=== PATIENT | female | born 1975 | race Caucasian/White ===

== ENCOUNTER 2021-11-08 14:26 | Emergency (ER) | payer OTHER, SELFPAY ==
[2021-11-08 14:30] VITALS: BP 128/83; PULSE 75; RESP 18; TEMP 36.7; O2SAT 98
--- NOTE | 2021-11-08 14:55 | ED.URI ---
HPI - URI/Sore Throat General Chief Complaint: Upper Respiratory Infection Stated Complaint: Sinus pain, cough, sore throat. Time Seen by Provider: 11/08/21 14:28 Source: patient Mode of arrival: ambulatory Limitations: no limitations History of Present Illness HPI Narrative: 46-year-old female presents to [facility] with complaints of nasal congestion, dry cough and fatigue on and off for the past 2 weeks. Patient reports that symptoms became worse 3 days ago. Patient reports that COVID is going around her work. Patient is COVID vaccinated. Patient denies recent travel. Patient denies shortness of breath, wheezing or runny nose. MD elicited complaint: cough Onset (ago): week(s) (2) Able to tolerate fluids by mouth: No Associated symptoms: nasal congestion Treatments prior to arrival: none Related Data Home Medications Medication Instructions Recorded Confirmed amitriptyline 25 mg PO DAILY 11/08/21 11/08/21 escitalopram oxalate 10 mg PO DAILY 11/08/21 11/08/21 spironolactone 100 mg PO BID 11/08/21 11/08/21 Allergies Allergy/AdvReac Type Severity Reaction Status Date / Time No Known Allergies Allergy Verified 11/08/21 14:46 Review of Systems Constitutional: Constitutional: Denies chills, Reports fatigue, Denies fever(s) and Denies weakness ENT: Denies vertigo, Denies dizziness, Reports nasal congestion and Denies sore throat Cardiovascular: Cardiovascular: Denies chest pain, Denies rapid heart rate, Denies radiating jaw, neck or arm pain and Denies slow heart rate Respiratory: Respiratory: Reports cough, Denies dyspnea and Denies wheezing Gastrointestinal: Gastrointestinal: Denies nausea Musculoskeletal: Musculoskeletal: Denies arthralgias and Denies joint swelling Integumentary/Breasts: Skin/Breast: Denies rash Allergic/Immunologic: Allergic/Immunologic: Denies wheezing PMFSH Comments At time of signature, I agree with nursing past medical, surgical, social and family history. There is no relevant family history pertinent to the presenting complaint. Exam Const: General: no acute distress Orientation/consciousness: patient oriented x3 HENMT: Head: normal to inspection Ears: external ears normal Face and sinus: normal facial exam Mouth: Yes moist mucous membranes Throat: posterior oropharynx normal and uvula midline Other: Mild nasal congestion noted Eyes: Pupils: Equal, round and reactive pupils present Neck: Neck: normal visual inspection Resp: Effort & Inspection: normal respiratory effort, not labored and not tachypneic Auscultation: clear to auscultation bilaterally Cardio: Rate: regular rate Rhythm: regular rhythm Skin: General skin exam: normal color Rashes: no rashes Neuro: General: patient oriented x3 and moves all extremities Psych: Affect: normal affect Attitude: cooperative Course Course Level of Care: Express Care Visit Vital Signs Vital signs: Vital Signs Temperature 36.7 C 11/08/21 14:30 Pulse Rate 75 11/08/21 14:30 Respiratory Rate 18 11/08/21 14:30 Blood Pressure 128/83 11/08/21 14:30 Pulse Oximetry 98 11/08/21 14:30 Temperature 36.7 C 11/08/21 14:30 Pulse Rate 75 11/08/21 14:30 Respiratory Rate 18 11/08/21 14:30 Blood Pressure 128/83 11/08/21 14:30 Pulse Oximetry 98 11/08/21 14:30 MDM - URI/Sore Throat MDM Narrative Medical decision making narrative: Discussed COVID results with patient. Patient understands that she is to self quarantine per CDC recommendations. Patient agrees to take medications as prescribed. Patient agrees continue Zyrtec daily. Patient agrees to proceed the emergency room if symptoms worsen Differential Diagnosis Differential diagnosis: Likely upper respiratory infection, otitis media and sinusitis Lab Data Lab results narrative: (+) COVID results Critical Care Time Critical Care Time Critical Care Time: No Discharge Plan Discharge Clinical Impression: COVID-19 Patient Disposi
== END 2021-11-08 15:05 | disposition home or self-care (01) ==
PROVIDERS: Emergency Provider Nurse Practitioner Family; PCP Family Medicine
DX: U07.1 COVID-19 (principal)
CPT/HCPCS: 87426; 99213; C9803; G0463

== ENCOUNTER 2021-11-16 15:31 | Emergency (ER) | payer OTHER, SELFPAY ==
--- NOTE | ~2021-11-16 | XR_ITS ---
EXAMINATION: XR chest 2V EXAM DATE: 11/16/2021 15:58 INDICATION: Post COVID. Cough for 12 days. TECHNIQUE: Frontal and lateral projections of the chest obtained and reviewed. There is no prior javier dy for comparison. FINDINGS: The lungs are clear. There are no pleural effusions. The cardiomediastinal silhouette is within normal limits. There is no pneumothorax suspected. The bones and soft tissues are unremarkab le. IMPRESSION: No acute cardiopulmonary findings. Reviewed, dictated and finalized at location B. [facility] NURSE
[2021-11-16 15:48] VITALS: BP 140/75; PULSE 88; RESP 20; TEMP 36.6; O2SAT 97
--- NOTE | 2021-11-16 16:01 | ED.URI ---
HPI - URI/Sore Throat General Chief Complaint: Upper Respiratory Infection Stated Complaint: chest heavy cough chills nausea diarrhea Time Seen by Provider: 11/16/21 16:14 Source: patient History of Present Illness HPI Narrative: Patient presents with continued cough and fatigue and occasional nausea. Patient denies any chest pain and no shortness of breath. Patient states she is here requesting a work note because she cannot pass the screening and return to work even though her COVID-19 quarantine is patient reports good p.o. and take normal urination no high fevers normally healthy individual. Related Data Home Medications Medication Instructions Recorded Confirmed amitriptyline 25 mg PO DAILY 11/08/21 11/16/21 escitalopram oxalate 10 mg PO DAILY 11/08/21 11/16/21 spironolactone 100 mg PO BID 11/08/21 11/16/21 Allergies Allergy/AdvReac Type Severity Reaction Status Date / Time No Known Allergies Allergy Verified 11/16/21 16:01 Review of Systems Review of Systems: CONSTITUTIONAL: Denies chills, or sweats. Reports fever and generalized body aches EYES: Denies visual changes, redness, or discharge. ENT: Denies otalgia. Reports nasal congestion runny nose and sore throat CARDIOVASCULAR: Denies chest pain, palpitations, or edema. RESPIRATORY: Denies dyspnea. Reports occasional cough GASTROINTESTINAL: Denies abdominal pain, nausea, vomiting, or diarrhea. GENITOURINARY: Denies dysuria or hematuria. SKIN: Denies rash or itching. MUSCULOSKELETAL: Denies back pain, joint pain, or myalgia. Reports generalized body aches NEUROLOGIC: Denies headache, numbness, or weakness. PSYCHIATRIC: Denies anxiety or depression. PMFSH Comments At time of signature, agree with nursing past medical, surgical, social and family history. There is no relevant family history pertinent to the presenting complaint Exam Narrative: The patient is a well-developed, well-nourished in no acute distress. SKIN: Skin is warm and dry without erythema, swelling or exudate. There is good turgor. No tenting. HEAD: Atraumatic. Normocephalic. No temporal or scalp tenderness. EYES: Moist and bright. Sclera and conjunctivae normal. No discharge. PERRLA. Extraocular motions intact. Gross visual acuity intact. EARS: Pinna is normal shape and contour. Clear external auditory canals. TM pearly mackenzie with good cone of light, no erythema or suppuration. Bilateral cerumen noted no gross hearing deficit. NOSE: pink, moist mucosa with good air movement. Clear rhinorrhea without nasal flaring. Septum midline. Mouth: moist mucous membranes. THROAT; mild erythema noted to posterior oropharynx with moderate postnasal drainage. Without exudate or ulceration.. Uvula midline. Normal movement of soft palate. NECK: Supple and nontender with full range of motion without discomfort. No meningeal signs. LUNGS: Equal and bilateral breath sounds without wheezes, rales or rhonchi. CHEST: The chest wall is without retractions or use of accessory muscles. HEART: Has a regular rate and rhythm without murmur, gallops, click or rub. ABDOMEN: Soft, nontender with positive active bowel sounds. No rebound tenderness. EXTREMITIES: Without cyanosis, clubbing or edema. Equal 2+ distal pulses and 2 second capillary refill noted. NEUROLOGIC: alert, active, . The patient moves all extremities with normal muscle strength. Normal muscle tone is noted. Normal coordination is noted. NO focal neurological findings noted. Course Course Level of Care: Express Care Visit Vital Signs Vital signs: Vital Signs Temperature 36.6 C 11/16/21 15:48 Pulse Rate 88 11/16/21 15:48 Respiratory Rate 20 11/16/21 15:48 Blood Pressure 140/75 11/16/21 15:48 Pulse Oximetry 97 11/16/21 15:48 Temperature 36.6 C 11/16/21 15:48 Pulse Rate 88 11/16/21 15:48 Respiratory Rate 20 11/16/21 15:48 Blood Pressure 140/75 11/16/21 15:48 Pulse Oximetry 97 11/16/21 15:48 Addressed elevated BP today.
== END 2021-11-16 16:20 | disposition home or self-care (01) ==
PROVIDERS: Emergency Provider Nurse Practitioner Family
DX: U07.1 COVID-19 (principal); J06.9 Acute upper respiratory infection, unspecified; F32.A Depression, unspecified
CPT/HCPCS: 71046; 99213; G0463

== ENCOUNTER 2021-11-24 08:06 | Outpatient (CLI) | payer SELFPAY ==
--- NOTE | ~2021-11-24 | MR_ITS ---
EXAMINATION: MR knee RT wo con DATE: 11/24/2021 08:53 INDICATION: Medial right knee pain. TECHNIQUE: Magnetic resonance imaging (MRI) of the right knee was performed without intravenous contr ast. Sequences included axial PD-weighted FS FSE, coronal PD-weighted FSE and PD-weighted FS FSE, sag ittal PD-weighted FSE, and sagittal T2-weighted FS FSE. COMPARISON: None. FINDINGS: Medial compartment: Medial meniscus is normal. There is partial-thickness cartilage loss of tibial condyle, deep at the c entral articular surface. There is partial-thickness cartilage loss of femoral condyle, deep at the c entral, medial, and posterior articular surface with mild subchondral edema-like marrow signal intens ity. Osteophytes are noted. Lateral compartment: Lateral meniscus is normal. There is partial-thickness cartilage loss of tibial condyle, deep at the central articular surface. There is shallow partial-thickness cartilage loss of femoral condyle. Oste ophytes are noted. Patellofemoral compartment: There is deep partial-thickness cartilage loss of patellar medial and lateral facets and median ridge and central, medial, and lateral trochlea. Osteophytes are noted. Ligaments and tendons: Anterior and posterior cruciate ligaments are normal. There is a mild sprain of medial collateral lig ament characterized by increased signal intensity and surrounding edema. There are changes of prior s prain of fibular collateral ligament characterized increased signal intensity proximally. There is mi ld patellar tendinopathy. Fluid: There is a small knee joint effusion. There is a small Trejo's cyst with loose bodies. There is mild prepatellar and superficial infrapatellar bursitis. IMPRESSION: 1. Moderate tricompartmental chondrosis. 2. Mild sprain of medial collateral ligament. 3. Small knee joint effusion. 4. Small Trejo's cyst with loose bodies. Reviewed, dictated and finalized at location A. [employer] [employer]TER
== END 2021-11-24 08:07 ==
PROVIDERS: Visit Provider Family Medicine
DX: M25.461 Effusion, right knee (principal); M23.41 Loose body in knee, right knee; S83.411A Sprain of medial collateral ligament of right knee, initial encounter; X58.XXXA Exposure to other specified factors, initial encounter
CPT/HCPCS: 73721